=== PATIENT | female | born 1990 | race Native Hawaiian/Other Pacific Islander ===

== ENCOUNTER 2016-04-11 08:37 | Emergency (ER) | payer OTHER ==
[~2016-04-11] VITALS: Ht 167.6 cm; Wt 63.5 kg
[2016-04-11 11:46] VITALS: BP 117/65; TEMP 97.8
== END 2016-04-11 11:51 | disposition home or self-care (01) ==
LOC: ED 08:37
DX: R07.89 Other chest pain (principal); R06.00 Dyspnea, unspecified; F19.10 Other psychoactive substance abuse, uncomplicated
CPT/HCPCS: 80307; 81025; 99283; G0479

== ENCOUNTER 2016-06-24 19:33 | Emergency (ER) | payer OTHER ==
[~2016-06-24] VITALS: Ht 167.6 cm; Wt 77.1 kg
[2016-06-24 20:12] VITALS: BP 110/72; TEMP 98.4
== END 2016-06-24 20:15 | disposition home or self-care (01) ==
LOC: ED 19:33
DX: S30.860A Insect bite (nonvenomous) of lower back and pelvis, initial encounter (principal); L02.31 Cutaneous abscess of buttock; W57.XXXA Bitten or stung by nonvenomous insect and other nonvenomous arthropods, initial encounter; Y92.098 Other place in other non-institutional residence as the place of occurrence of the external cause
CPT/HCPCS: 96372; 99282; J0696

== ENCOUNTER 2016-12-08 01:31 | Emergency (ER) | payer OTHER ==
[~2016-12-08] VITALS: Ht 170.2 cm; Wt 74.8 kg
[2016-12-08 01:47] VITALS: BP 114/67; TEMP 98.3
== END 2016-12-08 01:47 | disposition home or self-care (01) ==
LOC: ED 01:31
DX: M25.562 Pain in left knee (principal)
CPT/HCPCS: 99281

== ENCOUNTER 2016-12-27 20:25 | Outpatient (CLI) | payer OTHER | END 2016-12-27 20:28 | disposition short-term general hospital (02) | LOC: AMB 20:25 | DX: R06.02 Shortness of breath (principal); R07.89 Other chest pain; R50.9 Fever, unspecified | CPT/HCPCS: A0425; A0427 ==

== ENCOUNTER 2016-12-29 18:25 | Outpatient (CLI) | payer OTHER | END 2016-12-29 18:52 | disposition short-term general hospital (02) | LOC: AMB 18:25 | DX: R06.09 Other forms of dyspnea (principal); R00.0 Tachycardia, unspecified | CPT/HCPCS: A0425; A0427 ==